=== PATIENT | male | born 1990 ===

== ENCOUNTER 2020-05-16 14:23 | Emergency (ER) | payer SELFPAY ==
[2020-05-16] MEDS ORDERED: methylPREDNISolone Sod Succinate 125 MG/2 ML INJ IV ONE (14:45)
[2020-05-16] MEDS ORDERED: FAMOTIDINE 20 MG/2 ML INJ IV ONE ×2 (14:45→14:49)
[2020-05-16] MEDS ORDERED: diphenhydrAMINE 50 MG/ML VIAL IV ONE (14:46)
--- NOTE | 2020-05-16 14:52 | Emergency Department Report ---
HPI - General Chief Complaint: Allergic Reaction Time Seen by Provider: 05/16/20 14:44 - HPI HPI: Room 19 The patient is a 30-year-old male present with a chief complaint of allergic reaction. Patient states just prior to arrival he was bitten by fire ants. Patient states 5 minutes later he began feeling diffuse pruritus. Patient states he felt some swelling in his throat but denies shortness of breath. ED Past Medical Hx - Past Medical History Previous Medical History?: No - Surgical History Past Surgical History?: No - Family History Family history: no significant - Social History Smoking Status: Never Smoker Substance Use Type: None - Medications Home Medications: Home Medications Medication Instructions Recorded Confirmed Last Taken Type EPINEPHrine [Epipen 2-Palmer] 0.3 mg IM ONCE #0.6 ml 05/16/20 Unknown Rx Famotidine [Pepcid] 20 mg PO BID #6 tablet 05/16/20 Unknown Rx Prednisone [predniSONE 10 mg 10 mg PO .TAPER #1 tab.ds.pk 05/16/20 Unknown Rx (6-Day Pack, 21 Tabs)] diphenhydrAMINE [Benadryl CAP] 50 mg PO Q6HR #24 capsule 05/16/20 Unknown Rx ED Review of Systems ROS: Stated complaint: BITE BY BLACK ANTS Other details as noted in HPI Constitutional: no symptoms reported Respiratory: no symptoms reported. denies: shortness of breath Endocrine: no symptoms reported Skin: rash, pruritus Physical Exam - Physical Exam Vital Signs: Vital Signs 05/16/20 14:24 Temperature 97.8 F Pulse Rate 100 H Respiratory 20 Rate Blood Pressure 143/76 [Right] O2 Sat by Pulse 96 Oximetry Physical Exam: GENERAL: The patient is well-developed well-nourished male sitting on stretcher not appearing to be in acute distress. Mild facial edema and erythema HEENT: Normocephalic. Atraumatic. Extraocular motions are intact. Patient has moist mucous membranes. Oropharynx clear. Uvula midline NECK: Supple. No stridor. CHEST/LUNGS: Clear to auscultation. There is no respiratory distress noted. HEART/CARDIOVASCULAR: Regular. There is no tachycardia. There is no gallop rub or murmur. ABDOMEN: Abdomen is soft, nontender. Patient has normal bowel sounds. There is no abdominal distention. SKIN: There is no rash. There is no edema. There is no diaphoresis. NEURO: The patient is awake, alert, and oriented. The patient is cooperative. The patient has normal speech MUSCULOSKELETAL: There is no evidence of acute injury. ED Course Vital Signs 05/16/20 14:24 Temperature 97.8 F Pulse Rate 100 H Respiratory 20 Rate Blood Pressure 143/76 [Right] O2 Sat by Pulse 96 Oximetry ED Medical Decision Making - Radiology Data Radiology results: report reviewed (Lateral soft tissue neck x-ray), image reviewed (Lateral soft tissue neck x-ray) interpreted by me: Lateral soft tissue neck [id number] airway, no evidence of epiglottitis, no pr evertebral swelling - Differential Diagnosis Acute allergic reaction Critical care attestation.: If time is entered above; I have spent that time in minutes in the direct care of this critically ill patient, excluding procedure time. ED Disposition Clinical Impression: Acute allergic reaction Disposition: DC-01 TO HOME OR SELFCARE Is pt being admited?: No Does the pt Need Aspirin: No Condition: Stable Instructions: Urticaria (ED) Additional Instructions: Return to the emergency department should you develop worsening symptoms, inability to tolerate food or liquids, high fever or any other concerns Prescriptions: diphenhydrAMINE [Benadryl CAP] 50 mg PO Q6HR #24 capsule EPINEPHrine [Epipen 2-Palmer] 0.3 mg IM ONCE #0.6 ml Famotidine [Pepcid] 20 mg PO BID #6 tablet Prednisone [predniSONE 10 mg (6-Day Pack, 21 Tabs)] 10 mg PO .TAPER #1 tab.ds.pk Referrals: MARSHA BYERS MD [Staff Physician] - 3-5 Days (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 Please follow-up with her for further evaluation) Time of Disposition: 17:08
--- NOTE | 2020-05-16 16:18 | XRay Report ---
AP AND LATERAL SOFT TISSUE VIEWS OF THE NECK INDICATION: Allergic reaction. COMPARISON: No relevant prior imaging study available. FINDINGS: No acute skeletal abnormality. No prevertebral soft tissue swelling. No significant airway narrowing, epiglottis is unremarkable. IMPRESSION: 1. No acute findings. Signer Name: Vinayak Manriquez MD Signed: 05/16/2020 4:14 PM Workstation Name: [id number]
[2020-05-16 16:47] VITALS: BP 103/62
== END 2020-05-16 17:15 | disposition home or self-care (01) ==
LOC: ED 14:23
DX: T78.40XA Allergy, unspecified, initial encounter (principal); Z79.899 Other long term (current) drug therapy
CPT/HCPCS: 70360; 96374; 96375; 99283; J1200; J2930